=== PATIENT | female | born 2000 | race Caucasian/White ===

== ENCOUNTER 2020-11-10 11:57 | Outpatient (CLI) | payer OTHER ==
[~2020-11-10] VITALS: Ht 162.6 cm; Wt 89.7 kg
[2020-11-10 12:08] VITALS: BP 125/71
[2020-11-10] MEDS ORDERED: MULTTAB20 PO (12:11)
--- NOTE | 2020-11-10 13:24 | IPNPDOC ---
Obstetrical Progress Note Date of Service Nov 10, 2020 Subjective 20 yo G1 @ 31+2 by lmp us who presents for lower abdominal pain for the last 2 days. reports pain comes and goes and associated usually with moving in bed or sitting down. she denies any fever or chills, denies any urinary symptoms. she denies any LOF, DM. She has no other concerns. FHR: 135, Mod jose,+accels,-Decels-- Reactive NST, no contractions on toco ABD: TAUS: Cephalic, MVP: 5.9cm. no tenderness noted with palpation on abdomen ext: Grossly normal A/P 20 yo G1 @ 31+2 by lmp us who presents for lower abdominal pain for the last 2 days. hemodynamically stable. suspect pain due to round ligament pain. discussed belt and use of tylenol and massage as needed. reactive nst, normal vitals -given strict return precautions -f/u as previously scheduled on 22 november 2020 Objective Vital Signs Date Time Temp Pulse Resp B/P (MAP) Pulse Ox O2 Delivery O2 Flow Rate FiO2 11/10/20 12:08 99.1 111 18 125/71 (89) LAURENT ADAMSON MD Nov 10, 2020 13:24
== END 2020-11-10 13:00 | disposition home or self-care (01) ==
LOC: M LDO 11:57
PROVIDERS: ATTEND Obstetrics & Gynecology
DX: O26.893 Other specified pregnancy related conditions, third trimester (principal); Z3A.31 31 weeks gestation of pregnancy; R10.2 Pelvic and perineal pain
CPT/HCPCS: 59025; 76815; 81001; 87086; G0378; G0463

== ENCOUNTER 2020-12-09 00:17 | Outpatient (CLI) | payer OTHER ==
[~2020-12-09] VITALS: Ht 162.6 cm; Wt 91.0 kg
[~2020-12-09 00:17] MED LIST: MULTTAB20 PO
[2020-12-09 00:37] VITALS: BP 118/65
--- NOTE | 2020-12-09 01:29 | IPNPDOC ---
Obstetrical Progress Note Date of Service December 09, 2020 Subjective Ms. Chowdary is a 20yo at 35+2 presenting for "contractions" that started this evening shortly after having intercourse. She is unsure if they are contractions and cannot tell me how far apart they are. She says she feels pressure. She denied vb, lof, decreased fm, n/v/d, cp, sob, loyola, visual changes, change in vaginal dc, urinary sx. Objective Vital Signs Date Time Temp Pulse Resp B/P (MAP) Pulse Ox O2 Delivery O2 Flow Rate FiO2 12/09/20 00:37 98.6 95 18 118/65 (82) Assessment Heart Rate (FHR): 120 Variability: Moderate Accelerations: Positive Decelerations: None Heart Rate Tracing: Category I Tocometer Contractions: Yes Frequency: irregular (irritability) Sterile Vaginal Examination Dilation: 1cm Assessment and Plan Status: Reassuring Additional Comments Ms. Chowdary is a 20yo at 35+2 presenting for "contractions" that started this evening shortly after having intercourse. VS normal. CAT I tracing reactive. [place] with irritability. TAUS cephalic, MVP 4.7cm, +FM, +FCA. SVE 1/T/H and unchanged on 2h repeat exam. PTL is unlikely at this time. Provided with routine OB return precautions, otherwise to follow up at next [facility]. DIMITRY HASTINGS DO December 09, 2020 01:29
== END 2020-12-09 03:15 | disposition home or self-care (01) ==
LOC: M LDO 00:17
PROVIDERS: ATTEND Obstetrics & Gynecology
DX: O47.02 False labor before 37 completed weeks of gestation, second trimester (principal); Z3A.35 35 weeks gestation of pregnancy
CPT/HCPCS: 59025; G0378; G0463

== ENCOUNTER 2020-12-12 18:23 | Outpatient (CLI) | payer OTHER ==
[~2020-12-12] VITALS: Ht 163.8 cm; Wt 90.4 kg
[2020-12-12 18:36] VITALS: BP 98/54
[2020-12-12] MEDS ORDERED: FLUCONAZOLE 50MG TABLET PO ONE (19:50)
[2020-12-12] MEDS ORDERED: GI COCKTAIL 50ML BTL(HYOSCYAMINE/MAALOX/LIDOCAINE VISCOUS)(1:3:1) PO ONE (20:30)
--- NOTE | 2020-12-12 21:38 | IPNPDOC ---
Obstetrical Progress Note Date of Service December 12, 2020 Subjective Ms. Chowdary is a 20yo at 35+6 who presents for concern for ROM at 1700 clear with a small wet spot on her sheet that does not continue to leak. She also reports contractions q15min for days. She reports n/v but has had this her entire and it is associated with certain foods and a sensation of burning and gastric reflux. She otherwise denied diarrhea, cp, sob, loyola, visual c hanges, f/c, sick contacts, vaginal bleeding, discharge, or urinary sx. Objective Vital Signs Date Time Temp Pulse Resp B/P (MAP) Pulse Ox O2 Delivery O2 Flow Rate FiO2 12/12/20 18:36 109 20 98/54 (69) Assessment Heart Rate (FHR): 120 Variability: Moderate Accelerations: Positive Decelerations: None Heart Rate Tracing: Category I Tocometer Contractions: No Sterile Vaginal Examination Dilation: 1cm Cervical Consistency: Firm Cervical Position: Posterior Postion/Presentation: Cephalic presentation (by US) Assessment and Plan Additional Comments Ms. Chowdary is a 20yo at 35+6 who presents for concern for ROM. She reports n/v but has had this her entire and it is associated with certain foods and a sensation of burning and gastric reflux. NST CAT I reactive, no contractions. VS normal. NEFG, thick white vaginal discharge, cervix 1/T/H. ELENI/WP with abundant budding yeast. Pooling, ferning, and nitrazine negative. UA without suggestion of infection. TAUS cephalic, +FM, MVP 5cm. Patient was given fluconazole PO and a GI cocktail for GERD. ROM is unlikley at this time. Patient given routine OB return precautions. Otherwise to follow up at next DIMITRY SANTIAGO DO December 12, 2020 21:38
== END 2020-12-12 20:30 | disposition home or self-care (01) ==
LOC: M LDO 18:23
PROVIDERS: ATTEND Obstetrics & Gynecology
DX: O26.893 Other specified pregnancy related conditions, third trimester (principal); Z3A.35 35 weeks gestation of pregnancy; N89.8 Other specified noninflammatory disorders of vagina; O99.613 Diseases of the digestive system complicating pregnancy, third trimester; K21.9 Gastro-esophageal reflux disease without esophagitis
CPT/HCPCS: 59025; 81001; 87086; G0378; G0463

== ENCOUNTER 2020-12-19 02:40 | Outpatient (CLI) | payer OTHER ==
[~2020-12-19] VITALS: Ht 162.6 cm; Wt 92.1 kg
[2020-12-19 02:59] VITALS: BP 133/67
[2020-12-19 03:28] LABS: APPEARANCE, URINE CLEAR (CLEAR); BACTERIA, URINE AUTO NEGATIVE (NEGATIVE); BILIRUBIN, URINE AUTO NEGATIVE (NEGATIVE); BLOOD, URINE BLOOD NEGATIVE (NEGATIVE); COLOR, URINE YELLOW (YELLOW); GLUCOSE, URINE (UA) AUTO NEGATIVE (NEGATIVE); KETONE, URINE AUTO NEGATIVE (NEGATIVE); LEUKOCYTE ESTERASE, URINE AUTO TRACE (NEGATIVE); NITRITE, URINE AUTO NEGATIVE (NEGATIVE); PROTEIN, URINE AUTO NEGATIVE (NEGATIVE); RBC, URINE AUTO 0 /HPF (0-3); SPECIFIC GRAVITY URINE AUTO 1.004 (1.002-1.035); SQUAMOUS EPITHELIAL CELL UR AU 0 /HPF (0-6); UROBILINOGEN, URINE AUTO 0.2 mg/dL (0.0-2.0); WBC, URINE AUTO 1 /HPF (0-3)
--- NOTE | 2020-12-19 04:35 | IPNPDOC ---
Text Note Date of Service The patient was seen on 12/19/20. NOTE Item Value Date Time Urine Color YELLOW 12/19/20299 Urine Appearance CLEAR 12/19/20299 Urine pH 6.0 UNITS 12/19/20299 Urine Specific [place] 1.004 12/19/20 030 Urine Protein NEGATIVE mg/dL 12/19/20 030 Urine Glucose (Auto)(UA) NEGATIVE mg/dL 12/19/20 030 Urine Ketones (Auto) NEGATIVE mg/dL 12/19/20299 Urine Blood NEGATIVE 12/19/20299 Urine Nitrite NEGATIVE 12/19/20299 Urine Bilirubin NEGATIVE 12/19/20299 Urine Urobilinogen 0.2 mg/dL 12/19/20299 Urine Leukocyte Esterase (Auto) TRACE H 12/19/20299 Urine WBC (Auto) 1 /HPF 12/19/20299 Urine RBC (Auto) 0 /HPF 12/19/20 030 Urine Hyaline Casts (Auto) 0 /LPF 12/19/20299 Urine Bacteria (Auto) NEGATIVE 12/19/20299 Urine Squamous Epithelial Cells 0 /HPF 12/19/20 030 PATIENT CAME WITH SIMILAR COMPLAINTS OTHER VISITS ON 11/10/20, 12/09/20, 12/12/20 . COMPLAINTS OF PELVIC PRESSURE DISCHARGE AFTER INTERCOURSE. DENIES CONTRACTIONS OR LOSS OF FLUID. HAD RECENTLY TREATED FOR YEAST . PAST HISTORY LATE TRANSFER AT 28 WEEKS NO RECORDS OR LAB WORK AVAILABLE PENDING RECORDS FROM [place]. EXAMINATION /PLAN NO ACUTE DISTRESS SF HEIGHT 36 CM VERTEX PRESENTING NOT IN PELVIS, FLOATING. CATAGORY 1 STRIP MODERATE VARIBILITY, BASELINE NORMAL, ACC ELERATIONS NOTED NO DECELERATIONS. VAGINAL EXAMINATION STERILE NO FLUID NO BLOOD CERVIX POSTERIOR 1 CM THICK NON TENDER. VAGINAL CULTURE DONE . UA NEGATIVE FOR BACTERIA . PATIENT DISCHARGED UNDELIVERED PRECAUTIONS GIVEN. IF DISCOMFORT TYLENOL APPROPRIATE . EXPRESSED UNDERSTANDING COPY OF PASSPORT GIVEN VS,Monica, I+O VS, Avinashe, I+O Vital Signs Date Time Temp Pulse Resp B/P (MAP) Pulse Ox O2 Delivery O2 Flow Rate FiO2 12/19/20 02:59 97.6 90 133/67 (89) Jorge Maxwell MD December 19, 2020 04:33
== END 2020-12-19 04:25 | disposition home or self-care (01) ==
LOC: M LDO 02:40
PROVIDERS: ATTEND Obstetrics & Gynecology
DX: O26.893 Other specified pregnancy related conditions, third trimester (principal); Z3A.36 36 weeks gestation of pregnancy; N89.8 Other specified noninflammatory disorders of vagina; O99.613 Diseases of the digestive system complicating pregnancy, third trimester; K21.9 Gastro-esophageal reflux disease without esophagitis; R10.9 Unspecified abdominal pain
CPT/HCPCS: 59025; 81001; 87081; G0378; G0463

== ENCOUNTER 2020-12-23 00:19 | Outpatient (CLI) | payer OTHER ==
[~2020-12-23] VITALS: Ht 162.6 cm; Wt 92.3 kg
[2020-12-23 00:34] VITALS: BP 131/63
[2020-12-23 01:03] LABS: BASO # 0.1 10^3/uL (0.0-0.2); BASO % 0.4 % (0.0-1.0); EOS # 0.3 10^3/uL (0.0-0.5); EOS % 1.8 % (0.0-3.0); HEMATOCRIT 31.7 % (36.0-47.0); HEMOGLOBIN 9.9 g/dl (12.0-15.5); LYMPH # 4.4 10^3/uL (1.5-5.0); LYMPH % 25.5 % (24.0-44.0); MEAN CORPUSCULAR HEMOGLOBIN 27.4 pg (27.0-33.0); MEAN CORPUSCULAR HGB CONC 31.2 g/dl (32.0-36.5); MEAN CORPUSCULAR VOLUME 87.8 fl (80.0-96.0); MONO # 1.1 10^3/uL (0.0-0.8); MONO % 6.6 % (2.0-8.0); NEUTROPHILS # 11.1 10^3/uL (1.5-8.5); NEUTROPHILS % 65.1 % (36.0-66.0); PLATELET COUNT, AUTOMATED 464 10^3/uL (150-450); RED BLOOD COUNT 3.61 10^6/uL (4.00-5.40); WHITE BLOOD COUNT 17.1 10^3/uL (4.0-10.0)
[2020-12-23 01:51] LABS: AMPHETAMINES URINE REFLEX NEGATIVE (NEGATIVE); BARBITURATES URINE REFLEX NEGATIVE (NEGATIVE); BENZODIAZEPINES URINE REFLEX NEGATIVE (NEGATIVE); CANNABINOIDS URINE REFLEX NEGATIVE (NEGATIVE); COCAINE METABOLITE URINE REFLE NEGATIVE (NEGATIVE); METHADONE URINE REFLEX NEGATIVE (NEGATIVE); OPIATES URINE REFLEX NEGATIVE (NEGATIVE); PHENCYCLIDINE URINE REFLEX NEGATIVE (NEGATIVE)
[2020-12-23 02:12] VITALS: BP 125/74
--- NOTE | 2020-12-23 02:28 | IPNPDOC ---
Text Note Date of Service The patient was seen on 12/23/20. NOTE Item Value Date Time Urine Opiates Screen NEGATIVE 12/23/207 Urine Methadone Screen NEGATIVE 12/23/207 Urine Barbiturates Screen NEGATIVE 12/23/2036 Urine Phencyclidine Screen NEGATIVE 12/23/2036 Urine Amphetamines Screen NEGATIVE 12/23/2036 Urine Benzodiazepines Screen NEGATIVE 12/23/2036 Urine Cocaine Metabolite Screen NEGATIVE 12/23/2036 Urine Cannabinoids Screen NEGATIVE 12/23/20 0037 Item Value Date Time Urine Color YELLOW 12/23/208 Urine Appearance HAZY 12/23/208 Urine pH 6.0 UNITS 12/23/20 0038 Urine Specific [place] 1.006 12/23/208 Urine Protein NEGATIVE mg/dL 12/23/2037 Urine Glucose (UA) NEGATIVE mg/dL 12/23/2037 Urine Ketones NEGATIVE mg/dL 12/23/2037 Urine Blood NEGATIVE 12/23/208 Urine Nitrite NEGATIVE 12/23/208 Urine Bilirubin NEGATIVE 12/23/208 Urine Urobilinogen 0.2 mg/dL 12/23/208 Urine Leukocyte Esterase 3+ H 12/23/20 0038 Urine WBC (Auto) 14 /HPF H 12/23/20 0038 Urine RBC (Auto) 5 /HPF H 12/23/20 0038 Urine Hyaline Casts (Auto) 0 /LPF 12/23/208 Urine Bacteria (Auto) NEGATIVE 12/23/208 Urine Squamous Epithelial Cells 11 /HPF 12/23/20 0038 Item Value Date Time White Blood Count 17.1 10^3/uL H 12/23/20 0042 Red Blood Count 3.61 10^6/uL L 12/23/20 0042 Hemoglobin 9.9 g/dl L 12/23/20 0042 Hematocrit 31.7 % L 12/23/20 0042 Mean Corpuscular Volume 87.8 fl 12/23/20 0042 Mean Corpuscular Hemoglobin 27.4 pg 12/23/20 0042 Mean Corpuscular Hemoglobin Concent 31.2 g/dl L 12/23/20 0042 Red Cell Distribution Width 13.6 % 12/23/20 0042 Platelet Count 464 10^3/uL H 12/23/20 0042 Immature Granulocyte % (Auto) 0.6 % 12/23/20 0042 Neutrophils (%) (Auto) 65.1 % 12/23/20 0042 Lymphocytes (%) (Auto) 25.5 % 12/23/20 004 Monocytes (%) (Auto) 6.6 % 12/23/20 0042 Eosinophils (%) (Auto) 1.8 % 12/23/20 0042 Basophils (%) (Auto) 0.4 % 12/23/20 004 Neutrophils # (Auto) 11.1 10^3/uL H 12/23/20 0042 Lymphocytes # (Auto) 4.4 10^3/uL 12/23/20 0042 Monocytes # (Auto) 1.1 10^3/uL H 12/23/20 0042 Eosinophils # (Auto) 0.3 10^3/uL 12/23/20 0042 Basophils # (Auto) 0.1 10^3/uL 12/23/20 0042 12/23/20 Patient here for evaluation of pelvic pressure requesting iol at 37.1 weeks similar complaints at visit 11/10 2020 and 12/09/2020.and 12/12/2020, and 12/19/2020 and today. review records late entry for care transfer . Seen in office x 3 visits still no transfer of records. today all missing labs ordered to complete chart. Patient refused monitoring, were able to get brief heart rate. Examination by nurse found to be finger posterior no vaginal bleeding no discharge . Not in active labor . After a time patient consented to monitor strip 20 minutes . VS,Fishbone, I+O VS, Fishbone, I+O Laboratory Tests 12/23/20 00:42 Vital Signs Date Time Temp Pulse Resp B/P (MAP) Pulse Ox O2 Delivery O2 Flow Rate FiO2 12/23/20 00:34 98.3 106 16 131/63 (85) 1. 2. 3. FOLLOWUP: All of the above was relayed to the patient who was given an opportunity to ask questions that were answered to satisfaction. The patient voiced an understa nding and agreed to proceed. I spent [30] minutes during this visit seeing the patient [id number] and reviewing records. More than [50]% of the time was spent in direct [id number] discussion and counseling of the patient. . WE DISCUSSED THE PRESSURE IS BABY TRYING TO GET HEAD IN PELVIS AND BABY MOVING BACK SIDE TO SIDE . THIS IS NORMAL AT 37 WEEKS. THERE IS NO INDICATION FOR IOL , OR CS AT THIS POINT PATIENT HAS CATEGORY 1 STRIP NO DECELERATIONS NO CONTRACTIONS MODERATE VARIABILITY . DISCH ARGED UNDELIVERED, MAINTAIN APPOINTMENT AT [place] Jorge Valencia MD December 23, 2020 02:26
[2020-12-23 10:33] LABS: HIV 1&2 SCREEN CENTAUR NEGATIVE (NEGATIVE)
== END 2020-12-23 02:45 | disposition home or self-care (01) ==
LOC: M LDO 00:19
PROVIDERS: ATTEND Obstetrics & Gynecology
DX: O26.893 Other specified pregnancy related conditions, third trimester (principal); R10.2 Pelvic and perineal pain; Z3A.37 37 weeks gestation of pregnancy
CPT/HCPCS: 36415; 59025; 80307; 81001; 85025; 86762; 86780; 86803; 87086; 87340; 87389; G0378; G0463

== ENCOUNTER 2021-01-15 13:07 | Inpatient (IN) | payer OTHER ==
[2021-01-15] VITALS (43 sets, daily range): BP systolic 116–177; BP diastolic 56–107
[~2021-01-15] VITALS: Ht 162.6 cm; Wt 98.4 kg
[2021-01-15] MEDS ORDERED: VITA1CAP52 PO (13:37)
[2021-01-15] MEDS ORDERED: LACTATED RINGER'S 1000 ML IV STA (14:41)
[2021-01-15] MEDS ORDERED: OXYTOCIN DRIP 30 UNITS in IV 1 EA IV PRN (14:45)
[2021-01-15] MEDS ORDERED: LIDOCAINE 1% MDV 20ML VIAL INFIL PRN (14:45)
--- NOTE | 2021-01-15 14:49 | HPEPDOC ---
Obstetrical History & Physical General Date of Admission History of Present Illness 20yo at 40+5 presenting with SROM at 1300, clear, no odors. She notes regular painful contractions. She denied VB, LOF. She dneied n/v/d, cp, sob, loyola, visual changes, f/c, vaginal dc, urinary sx. Antepartum Course Pre- weight (lbs.): 194 Admission Weight (lbs.): 217 Change in Weight (lbs.): 23 Past Medical History Past Obstetrical History : Past Obstetrical History: Multigravida (SAB x1 expectant management) TAILER IN History: No pertinent history Past Medical History Medical History rubella non-immune, anemia, remote history of depression on meds Surgical History: Denies/None Family History Significant Family History: No pertinent family hx Social History Marital Status: Family situation: Spouse/partner home Psychosocial History: Depression (remote history) * Smoker: non-smoker Alcohol: Denies Drugs: denies Imunizations Tdap status: declined Influenza Status: declined Allergies Coded Allergies: No Known Allergies (Unverified , 11/10/20) Medications Scheduled No122/Iron/Folic Acid ( Multi Tablet) 1 Each Tablet, 1 TAB PO DAILY Vitamin D3/Folic Acid (Folic D3 94.38 Mcg-1 mg Cap) 94.38 Mcg (3775 Unit)-1 Mg Capsule, 1 EACH PO DAILY Physical Examination Physical Examination GENERAL: Alert and oriented times three. BREAST: . ABDOMEN: Gravid and non-tender to touch. FETUS: Is vertex (VTX) by sterile vaginal examination (SVE), fetus is vertex (VTX) by ultrasound HEART RATE: Regular rate and rhythm. LUNGS: Clear to auscultation (CTA). EXTREMITIES: No edema. No clonus. Laboratory Data Urine Culture: Contaminated Pertinent Laboratoy Data Blood Type: O+ RBC Antibody Screen: Negative HIV: Negative Hepatitis C: Negative Rapid Plasma Reagin: Nonreactive Rubella: Nonreactive Varicella: Immune Chlamydia/Gonorrhea: Negative Group B Streptococcus: Negative Quad Screen Test: Negative Glucose Tolerance Test: 123 Anatomy Ultrasound Placenta Location: Posterior Normal Anatomy: Yes Vaginal Examination Dilation: 4 cm Effacement: 70% Station: -2 Cervical Consistency: Soft Cervical Position: Middle Presentation: Cephalic presentation (by US) Assessment Heart Rate (FHR): 135 Variability: Moderate Accelerations: Positive Heart Patterns: Tachycardia Tocometer Contractions: Yes Frequency: regular Multi-drug resistant Organism: No history of MDRO Assessment/Plan Assessment 20yo at 40+5 presenting with SROM at 1300, clear, no odors. She notes regular painful contractions. SVE /-2. Positive pooling and ferning. APC 1. anemia last H/H 9. 2. rubella non-immune 3. remote history of depression on meds 4. declined tdap Rh pos, GBS neg, ceph by US, EFW 3400, placenta posterior Plan Admit and orient. Sole Sewer Hand and consent. Diet: clears Group B Streptococcus (GBS) [negative]. Labs and intravenous (IV) per unit protocol. Counseled on Pitocin and induction of labor (IOL). Lactated Ringers (LR): PRN Anticipate [normal spontaneous delivery ()]. C-S as appropriate. DIMITRY HASTINGS DO Jan 15, 2021 14:49
[2021-01-15 14:55] LABS: HEMATOCRIT 33.8 % (36.0-47.0); HEMOGLOBIN 10.5 g/dl (12.0-15.5); MEAN CORPUSCULAR HEMOGLOBIN 26.9 pg (27.0-33.0); MEAN CORPUSCULAR HGB CONC 31.1 g/dl (32.0-36.5); MEAN CORPUSCULAR VOLUME 86.4 fl (80.0-96.0); PLATELET COUNT, AUTOMATED 537 10^3/uL (150-450); RED BLOOD COUNT 3.91 10^6/uL (4.00-5.40); WHITE BLOOD COUNT 15.2 10^3/uL (4.0-10.0)
[2021-01-15] MEDS ORDERED: FENTANYL 2MCG/ML ROPIVACAINE 0.2% IN 0.9% NACL 100ML IVBAG As Ordered ONE (15:24)
[2021-01-15] MEDS: LR 1,000 ML IV SCH (15:46)
[2021-01-15] MEDS ORDERED: OXYTOCIN DRIP 30 UNITS in IV 1 EA IV SCH (16:20)
[2021-01-15] MEDS ORDERED: NALOXONE INJ 0.4MG/1ML VIAL (J2310 PER 1MG) IV PRN (16:30)
[2021-01-15] MEDS ORDERED: REFRIGERATOR IV KEYS XX PRN (16:30)
[2021-01-15] MEDS ORDERED: diphenhydrAMINE 50MG/ML VIAL (J1200) IV PRN (16:30)
[2021-01-15] MEDS ORDERED: ONDANSETRON 4MG/2ML VIAL IV PRN (16:30)
[2021-01-15] MEDS ORDERED: FENTANYL/ROPIVACAINE/NACL BAG 100 ML EPIDURAL SCH (16:30)
[2021-01-15] MEDS ORDERED: EPIDURAL/PCA KEYS XX PRN (16:30)
[2021-01-15] MEDS ORDERED: ePHEDrine SULFATE 25 MG/5 ML(5MG/ML) SYRINGE IV PRN (16:30)
[2021-01-15] MEDS ORDERED: LACTATED RINGER'S 1000 ML IV PRN (16:30)
[2021-01-15] MEDS ORDERED: EPIDURAL COMMENT XX SCH (16:30)
--- NOTE | 2021-01-15 19:54 | IPNPDOC ---
Obstetrical Progress Note Date of Service Jan 15, 2021 Subjective To room for routine assessment. Patient denied si/sx of pre-e. Objective Vital Signs Date Time Temp Pulse Resp B/P (MAP) Pulse Ox O2 Delivery O2 Flow Rate FiO2 01/15/21 19:01 92 18 135/67 (89) 01/15/21 18:01 97.5 Assessment Heart Rate (FHR): 135 Variability: Moderate Accelerations: Positive Decelerations: None Heart Rate Tracing: Category I Tocometer Contractions: Yes Frequency: irregular Assessment and Plan Anticipate: Vaginal Delivery Additional Comments CAT I NT reactive. Regular contractions. SVE per RN unchanged after epidural. Patient now qualifying for GHTN, ordering pre-eclampsia labs. Continue IOL with pitocin. DIMITRY HASTINGS DO Jan 15, 2021 19:54
[2021-01-15 20:59] LABS: CREATININE,RANDOM URINE 92.5 MG/DL; TOTAL PROTEIN,RANDOM URINE 31.4 MG/DL (0.0-12.0)
[2021-01-15 21:01] LABS: ALT/SGPT 12 U/L (12-78); BILIRUBIN,TOTAL 0.4 MG/DL (0.2-1.0); BLOOD UREA NITROGEN 7 MG/DL (7-18); CALCIUM LEVEL 8.2 MG/DL (8.5-10.1); CARBON DIOXIDE LEVEL 22 MEQ/L (21-32); CHLORIDE LEVEL 106 MEQ/L (98-107); CREATININE FOR GFR 0.73 MG/DL (0.55-1.30); GLUCOSE, FASTING 73 MG/DL (70-100); LDH LACTATE DEHYDROGENASE 165 U/L (84-246); SODIUM LEVEL 140 MEQ/L (136-145); TOTAL PROTEIN 5.8 GM/DL (6.4-8.2); URIC ACID 5.5 MG/DL (2.6-6.0)
[2021-01-15 21:28] LABS: CORD GAS HCO3 V 16.8 MEQ/L; CORD GAS O2 SAT V 88.5 %; CORD GAS PCO2 V 29.7 mmHg; CORD GAS PH V 7.371 UNITS; CORD GAS PO2 V 48.7 mmHg; CORD GAS SBC V 18.6 MEQ/L; CORD GAS TCO2 V 17.7 MEQ/L
[2021-01-15 21:29] LABS: CORD GAS ABE A -9.8; CORD GAS O2 SAT A 47.5 %; CORD GAS PCO2 A 52.9 mmHg; CORD GAS PH A 7.173 UNITS; CORD GAS PO2 A 27.7 mmHg; CORD GAS SBC A 15.8 MEQ/L; CORD GAS TCO2 A 20.6 MEQ/L
[2021-01-15] MEDS ORDERED: ACETAMINOPHEN 500 MG TAB PO PRN (21:40)
[2021-01-15] MEDS ORDERED: ACETAMINOPHEN TAB 650MG DOSE (2X325MG) PO PRN (21:40)
[2021-01-15] MEDS ORDERED: DIBUCAINE 1% OINTMENT 30GM TOP PRN (21:40)
[2021-01-15] MEDS ORDERED: DOCUSATE SODIUM 100MG CAPSULE PO PRN (21:40)
[2021-01-15] MEDS ORDERED: MOM 30ML SUSPENSION UDC PO PRN (21:40)
[2021-01-15] MEDS ORDERED: IBUPROFEN 600MG TAB PO PRN (21:40)
[2021-01-15] MEDS ORDERED: IBUPROFEN 800 MG TAB PO PRN (21:40)
--- NOTE | 2021-01-15 21:58 | DNPDOC ---
[facility], [place] Delivery Note Delivery Note DATE OF DELIVERY: 01/15/21 PREDELIVERY DIAGNOSIS: 40+5/7 weeks' gestation and spontaneous rupture of membranes. 1. anemia last H/H 9. 2. rubella non-immune 3. remote history of depression on meds 4. declined tdap POST DELIVERY DIAGNOSIS: same + delivered + shoulder dystocia + right labial laceration PROCEDURE: Spontaneous vaginal delivery, repair of labial laceration BRICK MOLDER HAND: Dr. Dimitry Hastings DO ANESTHESIA: epidural. ESTIMATED BLOOD LOSS: 300 mL. FINDINGS: 3620g, Score 7/9, nuchal cord times 1. DELIVERY SUMMARY: 20yo at 40+5 presenting with SROM at 1300, clear, and regular painful contractions. She was augmented with pitocin. She progressed to C/C/+3 and with good maternal effort delivered the head in the SADIA position. The right anterior shoulder did not deliver with anterior downward traction. Radha and suprapubic pressure was delivered and the shoulder delivered. Total dystocia time 30s. The rest of the corpus delivered without complication. The baby had spontaneous movement, cry, and good tone. The cord clamping was delayed 60s. It was then cut by the FOB. Cord gasses and blood were obtained. The placenta delivered with rodolfo downward traction and was in-tact. The uterus was firm and bleeding scant with a bolus of pitocin. A small midline mucosal abrasion was repaired with 2-0 vicryl. A right labial laceration was repaired with 4-0 vicryl rapid. A periurethral abrasion was hemostatic and did not require repair. The uterus remained firm and bleeding scant. The sponge, lap, and needle counts were correct. There were no complications. DIMITRY HASTINGS DO Jan 15, 2021 21:58
[2021-01-16] MEDS: LR 1,000 ML IV SCH (00:20)
[2021-01-16 02:00] VITALS: BP 135/74
[2021-01-16 06:00] VITALS: BP 135/73
--- NOTE | 2021-01-16 06:59 | IPNPDOC ---
Progress Note Date of Service: Jan 16, 2021 Day#: 1 Progress Note SUBJECT: 20yo at 40+5 presenting with SROM at 1300, clear, and regular painful contractions. She was augmented with pitocin. Her delivery was complicated by a 30s shoulder dystocia and a right labial laceration. 3620g, Score 7/9, nuchal cord times 1. he was diagnosed with pre-eclampsia without severe features shortly after her delivery. She has been ambulating, voiding spontaneously without issue and tolerating regular diet. Breast feeding without issue. Reports lochia is [joel a normal period. Patient is ambulating well. Reports some cramping with . Denies any pain. Voiding and stooling without difficulty. APC 1. anemia last H/H 9. 2. rubella non-immune 3. remote history of depression on meds 4. declined tdap 5. pre-eclampsia without severe features OBJECTIVE: VITAL SIGNS: Within normal limits, afebrile. Alert and oriented times three. Breath sounds clear to auscultation. Heart rate: Regular rate and rhythm, no murmurs, rubs or gallops. Abdomen: Fundus firm at U-2. Soft, NTTP. [Minimal] lochia. ASSESSMENT: 20yo at 40+5 presenting with SROM at 1300, clear, and reg ular painful contractions. She was augmented with pitocin. Her delivery was complicated by a 30s shoulder dystocia and a right labial laceration. 3620g, Score 7/9, nuchal cord times 1. She was diagnosed with pre-eclampsia without severe features shortly after her delivery. Vitals within normal limits, afebrile, hemodynamically stable with no evidence of infection or symptoms of pre-eclampsia. PLAN: 1. Discharge to home likely PPD2-3 2. Tylenol and Motrin for pain. 3. Encourage breast feeding and ambulation. 4. Desires minipill for contraception. 5. Routine PP visit in 6 weeks in clinic. BP check in 72h and 7d after discharge. 6. Discussed return precautions at length. 7. Recommended rubella vaccination. VS, I&O, 24H, Fishbone Vital Signs/I&O Vital Signs Date Time Temp Pulse Resp B/P (MAP) Pulse Ox O2 Delivery O2 Flow Rate FiO2 01/16/21 02:00 98.2 86 18 135/74 (94) 99 Room Air I&O- Last 24 Hours up to 6 AM 01/16/21 06:00 Intake Total 2062 ml Output Total 1000 ml Balance 1062 ml Laboratory Data 24H LABS Laboratory Tests 2 01/15/21 14:28: Serology Scanned Report Hepatitis B Testing 01/15/21 14:46: Nucleated Red Blood Cells % (auto) 0.0 01/15/21 20:14: Urine Random Creatinine 92.5, Urine Random Total Protein 31.4H 01/15/21 20:19: Anion Gap 12, Uric Acid 5.5, Calcium Level 8.2L, Total Bilirubin 0.4, Aspartate Amino Transf (AST/SGOT) 20, Alanine Aminotransferase (ALT/SGPT) 12, Alkaline Phosphatase 225H, Lactate Dehydrogenase 165, Total Protein 5.8L, Albumin 2.0L, Albumin/Globulin Ratio 0.5L 01/15/21 21:20: Cord Arterial Blood pH 7.173, Cord Arterial Blood PCO2 52.9, Cord Arterial Blood PO2 27.7, Cord Arterial Blood HCO3 19.0, Cord Arterial Blood Total CO2 20.6, Cord Arterial Blood Base Excess -9.8, Cord Arterial Base Excess (Standard 15.8, Cord Arterial Bld Oxygen Saturation 47.5, Cord Venous Blood pH 7.371, Cord Venous Blood PCO2 29.7, Cord Venous Blood PO2 48.7, Cord Venous Blood HCO3 16.8, Cord Venous Blood Total CO2 17.7, Cord Venous Base Excess (Actual) -7.0, Cord Venous Base Excess (Standard) 18.6, Cord Venous Blood Oxygen Saturation 88.5 CBC/BMP Laboratory Tests 01/15/21 14:46 01/15/21 20:19 DIMITRY HASTINGS DO Jan 16, 2021 06:59
[2021-01-16] MEDS: PRENATAL VITAMINS CHEWABLE TABLET PO SCH (07:33)
[2021-01-16 10:00] VITALS: BP 134/73
[2021-01-16 14:00] VITALS: BP 124/64
[2021-01-16 17:54] VITALS: BP 143/63
[2021-01-16 22:00] VITALS: BP 130/65
[2021-01-17 02:00] VITALS: BP 158/74
[2021-01-17 06:00] VITALS: BP 142/88
[2021-01-17] MEDS ORDERED: ACET1TAB55 PO (07:18)
[2021-01-17] MEDS ORDERED: IBUP80TA PO (07:18)
--- NOTE | 2021-01-17 07:19 | DS.PDOC ---
Discharge Summary General Date of Admission Jan 15, 2021 at 14:26 Date of Discharge Jan 17, 2021 Discharge Summary HOSPITAL COURSE: Linda navarro 20 yo G2 now P1 who underwent an uncomplicated on 15Jan2021 after being admitted for PROM and receiving augmentation. She ruled in for pre eclampsia but BP was severe severely elevated. Her course was unremarkable. On her day of discharge she met all appropriate discharge criteria. She was ambulating, voiding, tolerating a regular diet, and had minimal lochia. She also denied headaches, RUQ pain, visual changes, or SOB. DISCHARGE MEDICATIONS: Please see below. ALLERGIES: Please see below. PHYSICAL EXAMINATION ON DISCHARGE: VITAL SIGNS: Please see below. GENERAL: AAOX3, NAD ABDOMINAL EXAMINATION: Fundus firm at U-2. No fundal tenderness EXTREMITIES: No edema PSYCHIATRIC EXAMINATION: Affect appropriate LABORATORY DATA: Please see below. ACTIVITY: Pelvic rest for 6 weeks DIET: Regular DISCHARGE PLAN: Discharge home DISPOSITION: Discharge home on 17Jan2021 DISCHARGE INSTRUCTIONS: 1. Nothing in the vagina for 6 weeks ITEMS TO FOLLOWUP ON ON OUTPATIENT: 1. Walk in to the [facility] office on any time during the day for a BP check 2. Call to schedule a visit for 6 weeks post delivery DISCHARGE CONDITION: Stable. TIME SPENT ON DISCHARGE: Greater than 20 minutes. Jarred Mccoy DO Vital Signs/I&Os Vital Signs Date Time Temp Pulse Resp B/P (MAP) Pulse Ox O2 Delivery O2 Flow Rate FiO2 01/17/21 06:00 97.9 71 16 142/88 (106) 97 Room Air Discharge Medications Scheduled No122/Iron/Folic Acid ( Multi Tablet) 1 Each Tablet, 1 TAB PO DAILY, (Reported) Vitamin D3/Folic Acid (Folic D3 94.38 Mcg-1 mg Cap) 94.38 Mcg (3775 Unit)-1 Mg Capsule, 1 EACH PO DAILY, (Reported) Scheduled PRN Acetaminophen (Acetaminophen) 325 Mg Tablet, 650 MG PO Q4HP PRN for PAIN LEVEL 1-5 Ibuprofen (Ibuprofen) 800 Mg Tablet, 800 MG PO Q8HP PRN for PAIN LEVEL 6-10 Allergies Coded Allergies: No Known Allergies (Unverified , 11/10/20) JARRED MCCOY DO Jan 17, 2021 07:19
[2021-01-17] MEDS: PRENATAL VITAMINS CHEWABLE TABLET PO SCH (08:53)
[2021-01-17] MEDS ORDERED: BOOSTRIX/ADACEL VACCINE (DIPHTH/PERTUSS/ACELL/TETANUS) 0.5ML SYR IM ONE (09:00)
[2021-01-17] MEDS ORDERED: INFLUENZA QUADRIVALENT PF VACCINE 0.5ML SYRINGE IM ONE (09:00)
[2021-01-17] MEDS ORDERED: MEASLES,MUMPS,RUBELLA VACCINE INJ (MMR-II) (90707) SQ ONE (09:00)
== END 2021-01-17 11:50 | disposition home or self-care (01) | DRG 807 ==
LOC: M LDO 13:07 → M LDI 14:26 → M OBS 23:00
PROVIDERS: ADMIT Obstetrics & Gynecology; ATTEND Obstetrics & Gynecology
PROC: 10E0XZZ Delivery of Products of Conception, External Approach (ICD-10-PCS; principal; 2021-01-15)
PROC: 0HQ9XZZ Repair Perineum Skin, External Approach (ICD-10-PCS; 2021-01-15)
DX: O48.0 Post-term pregnancy (principal); Z37.0 Single live birth; Z3A.40 40 weeks gestation of pregnancy; D64.9 Anemia, unspecified; O99.02 Anemia complicating childbirth; O70.0 First degree perineal laceration during delivery

== ENCOUNTER → 2021-01-20 | Outpatient (CLI) | payer OTHER ==
[~2021-01-20] MED LIST changes: +ACET1TAB55 PO; +IBUP80TA PO; +VITA1CAP52 PO
[2021-01-20 13:23] LABS: HEMATOCRIT 30.3 % (36.0-47.0); HEMOGLOBIN 9.2 g/dl (12.0-15.5); MEAN CORPUSCULAR HGB CONC 30.4 g/dl (32.0-36.5); MEAN CORPUSCULAR VOLUME 88.9 fl (80.0-96.0); PLATELET COUNT, AUTOMATED 672 10^3/uL (150-450); RED BLOOD COUNT 3.41 10^6/uL (4.00-5.40); WHITE BLOOD COUNT 9.7 10^3/uL (4.0-10.0)
[2021-01-20 14:10] LABS: ALBUMIN 2.5 GM/DL (3.2-5.2); ALT/SGPT 26 U/L (12-78); BILIRUBIN,TOTAL 0.2 MG/DL (0.2-1.0); BLOOD UREA NITROGEN 10 MG/DL (7-18); CALCIUM LEVEL 8.8 MG/DL (8.5-10.1); CARBON DIOXIDE LEVEL 25 MEQ/L (21-32); CHLORIDE LEVEL 109 MEQ/L (98-107); CREATININE FOR GFR 0.68 MG/DL (0.55-1.30); GLUCOSE, FASTING 68 MG/DL (70-100); POTASSIUM SERUM 4.3 MEQ/L (3.5-5.1); SODIUM LEVEL 138 MEQ/L (136-145); TOTAL PROTEIN 6.3 GM/DL (6.4-8.2)
[2021-01-20 14:25] LABS: CREATININE,RANDOM URINE 23.9 MG/DL; TOTAL PROTEIN,RANDOM URINE < 5.0 MG/DL (0.0-12.0)
== END ==
LOC: M LAB 12:12
PROVIDERS: ATTEND Registered Nurse
DX: Z51.81 Encounter for therapeutic drug level monitoring (principal)

== ENCOUNTER 2021-05-29 10:04 | Emergency (ER) | payer OTHER ==
[~2021-05-29] VITALS: Ht 162.6 cm; Wt 79.5 kg
[2021-05-29 10:04] VITALS: BP 126/79
--- OUTSIDE RECORDS SUMMARY | 2021-05-29 10:10 | CCD ---
Author Author [facility] Organization [facility] Address Unknown Phone Unavailable Support Name Relationship Address Phone UE Next Of Kin Unknown Unavailable LAURA HAMMER Next Of Kin [address] [place] [address] HARMANLAURA BARRERA [address] [place] [address] Unavailable Re-disclosure Warning The records that you are about to access may contain information from federally-assisted alcohol or drug abuse programs. If such information is present, then the following federally mandated warning applies: This information has been disclosed to you from records protected by federal confidentiality rules (42 CFR part 2). The federal rules prohibit you from making any further disclosure of this information unless further disclosure is expressly permitted by the written consent of the person to whom it pertains or as otherwise permitted by 42 CFR part 2. A general authorization for the release of medical or other information is NOT sufficient for this purpose. The Federal rules restrict any use of the information to criminally investigate or prosecute any alcohol or drug abuse patient.The records that you are about to access may contain highly sensitive health information, the redisclosure of which is protected by Article 27-F of the [facility] Public Health law. If you continue you may have access to information: Regarding HIV / AIDS; Provided by facilities licensed or operated by the [facility] Office of Mental Health; or Provided by the [facility] Office for People With Developmental Disabilities. If such information is present, then the following [facility] mandated warning applies: This information has been disclosed to you from confidential records which are protected by state law. State law prohibits you from making any further disclosure of this information without the specific written consent of the person to whom it pertains, or as otherwise permitted by law. Any unauthorized further disclosure in violation of state law may result in a fine or residential sentence or both. A general authorization for the release of medical or other information is NOT sufficient authorization for further disc losure. Medications No Information Insurance Providers Payer name Policy type / Coverage type Policy ID Covered alliance party ID Covered alliance party's relationship to [place] Policy [place] Plan Information [facility] [id number] [facility] [id number] Problems, Conditions, and Diagnoses No Information Surgeries/Procedures No Information Results No Information Social History No Information
--- OUTSIDE RECORDS SUMMARY | 2021-05-29 12:23 | CCD ---
Author Author [facility] Organization [facility] Address Unknown Phone Unavailable Support Name Relationship Address Phone UE Next Of Kin Unknown Unavailable LAURA HAMMER Next Of Kin [address] [place] [address] HARMANLAURA BARRERA [address] [place] [address] Unavailable Re-disclosure Warning The records that you [...] is protected by Article 27-F of the [facility] Public Health law. If you continue you may have access to information: Regarding HIV / AIDS; Provided by facilities licensed or operated by the [facility] Office of Mental Health; or Provided by the [facility] Office for People With Developmental Disabilities. If such information is present, then the following [facility] mandated warning applies: This information has [...] law may result in a fine or prison sentence or both. A general authorization for the release of medical or other information is NOT sufficient authorization for further disc losure. Medications No Information Insurance Providers Payer name Policy type / Coverage type Policy ID Covered democrat ID Covered democrat's relationship to thibodeaux Policy [place] Plan Information [facility]3] [id number] [facility] [id number] Problems, Conditions, and Diagnoses No Information Surgeries/Procedures No Information Results No Information Social History No Information
--- NOTE | 2021-05-29 13:15 | REP ---
INDICATION: sob COMPARISON: None. TECHNIQUE: PA/Lateral FINDINGS: Lungs: Clear, no infiltrate. Heart: Normal in size. Mediastinum: Mediastinal silhouette unremarkable. Pleural angles: Unremarkable.. Bones and soft tissues: Unremarkable. IMPRESSION: No acute pulmonary disease. <Electronically signed by Syed Toure > 05/29/21 [id number]
[2021-05-29 13:21] LABS: RSV AMPLIFICATION NEGATIVE (NEGATIVE)
[2021-05-29] MEDS ORDERED: MOME50SP NARES (14:11)
[2021-05-29] MEDS ORDERED: VENTAER INH (14:11)
[2021-05-29] MEDS ORDERED: AUGM875T28 PO (14:11)
== END 2021-05-29 14:20 | disposition home or self-care (01) ==
LOC: M ED 10:04
DX: J20.9 Acute bronchitis, unspecified (principal); F41.9 Anxiety disorder, unspecified; F33.9 Major depressive disorder, recurrent, unspecified